=== PATIENT | male | born 1940 | race Caucasian/White ===

== ENCOUNTER 2020-06-25 12:28 | Emergency (ER) | payer MEDICARE ==
[2020-06-25 13:46] LABS: Base Excess-Venous 1.3 mmol/L (-2.0 to 3.0); Bicarbonate (HCO3v) 28.5 mmol/L (22.0-28.0); CO2 Tension (PvCO2) 55.1 mmHg (40.0-50.0); Calcium, Ionized 1.18 mmol/L (1.15-1.33); Chloride 105 mmol/L (98-107); Hemoglobin - Calc 13.7 g/dL (14.0-18.0); Sodium 144 mmol/L (138-145); T. Carbon Dioxide 30.2 mmol/L (22.0-28.0); vO2 Saturation-calc 85.8 % (60.0-85.0)
[2020-06-25 13:48] LABS: ALT (SGPT) 40 U/L (8-55); AST (SGOT) 32 U/L (5-34); Albumin 3.6 g/dL (3.4-4.8); Alkaline Phosphatase 108 U/L (40-110); Anion Gap 12 mmol/L (10-20); BUN (Urea Nitrogen) 13 mg/dL (8.4-25.7); Bilirubin, Total 0.7 mg/dL (0.2-1.2); Calc. Creatinine Clearance 0 mL/min (70-130); Calcium 8.6 mg/dL (7.8-10.44); Carbon Dioxide 26 mmol/L (23-31); Chloride 108 mmol/L (98-107); Globulin 2.5 g/dL (2.4-3.5); Glucose 100 mg/dL (83-110); Protein, Total 6.1 g/dL (5.8-8.1); Sodium 142 mmol/L (136-145)
[2020-06-25 13:56] LABS: Eosinophils 9 % (0-10); Hemoglobin 13.7 g/dL (14.0-18.0); Lymphocytes 34 % (21-51); MDiff Complete? YES; Mean Corpuscular Hemoglobin 30.1 pg (27.0-31.0); Mean Corpuscular Volume 94.2 fL (78.0-98.0); Mean Platelet Volume 8.9 fL (7.4-10.4); Monocytes 3 % (0-10); Neutrophil 51 % (42-75); Platelet Count 113 thou/uL (130-400); Platelet Morphology Comment Appears Decreased; RBC Distribution Width 13.7 % (11.5-14.5); Reactive Lymphocytes 3 % (0-10); Red Blood Cell (RBC) Count 4.54 mill/uL (4.70-6.10); White Blood Cell (WBC) Count 3.6 thou/uL (4.8-10.8)
[2020-06-25 13:59] LABS: Bilirubin Negative (Negative); Blood, Urine Negative (Negative); Clarity Clear (Clear); Glucose, Urine (Dipstick) Negative (Negative); Ketone, Urine Negative (Negative); Leukocyte Negative (Negative); Nitrite Negative (Negative); Protein, Urine (Dipstick) Negative (Neg-Trace); Specific Gravity, Urine 1.025 (1.005-1.030); Urobilinogen 0.2 mg/dL (Less than 2)
--- NOTE | 2020-06-25 16:57 | RAD ---
PORTABLE CHEST: 06/25/20 An AP portable film at 1339 is compared with a 06/18/20 study. As before, there is a linear infiltrate over the left hemidiaphragm. It is not substantially different. There are no new infiltrates apparen t. No effusions are seen. Cardiomegaly is about the same as before and there is no congestive change. IMPRESSION: No siginificant change since 06/18. POS: HOME
--- NOTE | 2020-06-25 17:01 | CT ---
CT OF THE BRAIN WITHOUT CONTRAST: 06/25/20 Comparison is made with a prior CT dated 04/11/03. Not unexpected, there has been further atrophy of t he brain over the interval. The ventricles are appropriate in size for age and atrophy. No intracrani al bleeding or extra-axial hematoma was seen. patchy deep white matter lucency is typical of chronic microvascular ischemia, but there were no findings strongly suggestive of an acute stroke. No mass or edema was seen. The visible paranasal sinuses are clear. IMPRESSION: No acute intracranial findings. Preliminary report called to Ladan in ER at 1349 on 06/25/20. POS: HOME
== END 2020-06-25 15:30 | disposition home or self-care (01) ==
LOC: BURERS 12:28
DX: R53.1 Weakness (principal); F03.90 Unspecified dementia, unspecified severity, without behavioral disturbance, psychotic disturbance, mood disturbance, and anxiety; E78.5 Hyperlipidemia, unspecified; I10 Essential (primary) hypertension; Z79.899 Other long term (current) drug therapy
CPT/HCPCS: 51701; 70450; 71045; 80053; 81003; 82330; 82803; 83880; 84484; 85025; 93005